=== PATIENT | female | born 1955 | race Caucasian/White ===

== ENCOUNTER 2017-04-29 10:45 | Day surgery (SDC) | payer OTHER ==
[~2017-04-29 10:45] MED LIST: ONDANSETRON 4 MG/2 ML VIAL IVPUSH PRN
[2017-04-29] MEDS ORDERED: CYCLOPENTOLATE HCL 1% OPHTH SOLN 2 ML BOTTLE ONE (11:00)
[2017-04-29] MEDS ORDERED: FLURBIPROFEN 0.03% OPHTH SOLN 2.5 ML BOTTLE ONE (11:00)
[2017-04-29] MEDS ORDERED: TROPICAMIDE 1% OPHTH SOLN 15 ML BOTTLE ONE (11:01)
[2017-04-29] MEDS ORDERED: PHENYLEPHRINE 2.5% OPHTH SOLN 15 ML BOTTLE ONE (11:01)
[2017-04-29] MEDS ORDERED: GENTAMICIN SULFATE 0.3% OPHTHALMIC (EYE DROPS) 5ML BOTTLE ONE (11:02)
[2017-04-29] MEDS ORDERED: ACETAMINOPHEN 325 MG TABLET (FP) PO PRN (11:37)
[2017-04-29] MEDS ORDERED: MIDAZOLAM HCL 2 MG/2 ML SINGLE DOSE VIAL ONE (12:07)
[2017-04-29 13:23] VITALS: TEMP 98.1
[2017-04-29 13:52] VITALS: BP 129/63; PULSE 60
--- NOTE | 2017-04-29 13:57 | OP ---
DATE OF OPERATION: 04/29/2017 TITLE OF PROCEDURE: Planned extracapsular cataract extraction, phacoemulsification, and insertion of posterior chamber lens implant in the left eye. SURGEON: Steven Glass MD SKILLS TRAINER: Steven Glass MD ANESTHESIA: Local standby. ANESTHESIOLOGIST: Parmjit Santiago MD COMPLICATIONS: None. PREOPERATIVE DIAGNOSIS: Cataract, left eye. POSTOPERATIVE DIAGNOSIS: Cataract, left eye. FINDINGS AND PROCEDURE: After successful peribulbar anesthesia was given to the left eye, the patient was prepped and draped in the usual manner to expose the left eye. Then, the Tegaderm strips and lid speculum were inserted, and the microscope brought into position over the eye. A superior fornix-based flap was then fashioned for 12 mm using Nishi scissors and 0.12 forceps, and hemoglobin achieved with electrocautery. The limbal groove was fashioned for 3 mm with a crescent blade and dissected anterior into clear cornea, and then, a 3-mm blade was used to enter the anterior chamber. Then, under Viscoat, a 360-degree anterior capsulotomy was performed and the removed from the eye. Side-port incision was done with a 15-degree blade, and then, phacoemulsification of the entire nucleus was then done, approximately 1-1/2 minutes' time, followed by irrigation and aspiration of all cortical material and an intact posterior capsule and a red reflex present. Provisc was injected in the posterior chamber to deepen the posterior capsule, and then, the implant was inspected carefully under the microscope, found to be free of defects, , and flaws. It was folded, placed in Provisc-filled cartridge. The cartridge was placed in the injector and the implant injected into the eye, such that the inferior haptic was in the inferior capsular bag and the superior haptic was in the superior capsular bag and then rotated in a horizontal position with a Sinskey hook. The Provisc was then aspirated and replaced with Miochol, Miostat, and BSS. The wound was closed with 1 loosely-tied 10-0 Ethilon suture, and the wound was tested for leakage and none was found. The conjunctival-tenon flaps were reapproximated. At this point, the implant was fixated in the capsular bag, centrally located with a round pupil, intact posterior capsule, and a red reflex present. Topical Betoptic acid and Maxitrol ophthalmic suspensions were placed, as well as bacitracin ophthalmic ointment. The speculum and the Tegaderm strips were removed from the lids, and the lids were closed and a patch and shield placed on the eye, and the patient was then discharged from the operating room to the recovery area in good condition, having tolerated the procedure well. Christine GUZMAN/[id number]
== END 2017-04-29 13:50 | disposition home or self-care (01) ==
LOC: FASU 10:45
PROVIDERS: ATTEND Ophthalmology
PROC: 08RK3JZ Replacement of Left Lens with Synthetic Substitute, Percutaneous Approach (ICD-10-PCS; principal; 2017-04-29 12:25)
DX: H26.8 Other specified cataract (principal)